=== PATIENT | male | born 1975 | race Caucasian/White ===

== ENCOUNTER 2018-04-07 20:23 | Emergency (ER) | payer OTHER ==
[~2018-04-07] VITALS: Ht 165.1 cm; Wt 90.7 kg
[2018-04-07] MEDS ORDERED: CRESTOR10 MG PO (20:42)
[2018-04-07] MEDS ORDERED: LEVAQUIN 500 M500 M2 PO (22:45)
[2018-04-07 23:05] VITALS: BP 132/87
== END 2018-04-07 23:05 | disposition home or self-care (01) ==
LOC: M.ERS 20:23
DX: N45.1 Epididymitis (principal)